=== PATIENT | female | born 1960 | race Caucasian/White ===

== ENCOUNTER 2016-06-07 18:05 | Emergency (ER) | payer MEDICARE, OTHER ==
--- NOTE | ~2016-06-07 | CR63 ---
[facility] A Service of [facility] RADIOLOGY TEXT RESULTS PATIENT: KIRK MCKENZIE LOCATION: SED : 60 UNIT #: [id number] AGE: [address]: Conner Rosado MD SEX: F ORDER DR: [id number] [place] [id number] E MR#: [id number] Acc #: [id number] NAME: KIRK MCKENZIE : 1960 SEX: F STUDY DATE/TIME: 06/07/2016 18:34 UNIT: SED ROOM: STUDY DESCRIPTION: CR Chest 2 View Attending Physician: Conner Rosado M.D. Ordering Physician: Conner Rosado M.D. Primary Care Physician: Arminda Bravo A.P.R.N. MEDICAL IMAGING REPORT This report is preliminary unless electronic signature is present. EXAM Chest x-ray HISTORY Cough, short of air and congestion since Wednesday. History of asthma and COPD. Smoker. COMMENT 2 views of the chest reviewed. Comparison 10/02/2015. There is hyperinflation and some distortion of parenchymal architecture consistent with chronic obstructive lung disease history but no pleural effusion. Ardg-[id number]-[id number] thoracic degenerative changes again seen. Heart size is normal. Probably some thickening of central peribronchovascular soft tissues consistent with asthma/bronchitis, but this has not changed. No focal alveolar infiltrate, no pneumothorax, no congestive failure. IMPRESSION 1. Hyperinflation and distortion of parenchymal architecture consistent with chronic obstructive lung disease history, probably some thickening of the peribronchovascular soft tissues - all chronic in appearance. No focal alveolar infiltrate, no pleural effusion or pneumothorax. Dictated by... Luisa Hoffman M.D. THIS IS AN ELECTRONICALLY VERIFIED REPORT Luisa Hoffman M.D. at 06/07/2016 11:14 PM [facility]/psc [facility] A Service of [facility] RADIOLOGY TEXT RESULTS PATIENT: KIRK MCKENZIE LOCATION: SED : 60 UNIT #: [id number] AGE: [address]: Conner Rosado MD SEX: F ORDER DR: TD: 06/07/2016 22:58 JOB #: [id number] MEDICAL IMAGING REPORT Page 1 of 1
--- NOTE | ~2016-06-07 | EKG ---
PATIENT: KIRK MCKENZIE UNIT #: [id number] Ventricular Rate: 87 BPM Atrial Rate: 87 BPM P-R Interval: 132 ms QRS Duration: 94 ms Q-T Interval: 360 ms QTC Calculation(Bezet): 433 ms P [place]: 45 degrees Calculated R [place]: 43 degrees Calculated T [place]: 140 degrees Diagnosis Line: Normal sinus rhythm Diagnosis Line: Possible Left atrial enlargement Diagnosis Line: Left ventricular hypertrophy with repolarization Diagnosis Line: abnormality Diagnosis Line: Abnormal ECG Diagnosis Line: When compared with ECG of 17-AUG-2014 05:47, Diagnosis Line: T wave inversion more evident in Lateral leads Diagnosis Line: Confirmed by KATT WILKES MD ([id number]) on Diagnosis Line: 06/25/2016 7:10:58 AM INTERPRETING : MEAGAN
[~2016-06-07 18:05] MED LIST: ACULAR10 ML OD; ALBUTEROL17 GM; ALBUTEROL17 GM INH; ALLERGY RELIEF10 M1 PO; AMOXICILLIN500 M1 PO; ANAPROX DS550 M1 PO; ASPIRIN; ASPIRIN81 MG PO; ATROVENT; BENZONATATE PO; BUSPAR; BUSPAR PO; CARDIZEM SR PO; CELEXA; CELEXA PO; CLARITIN10 MG PO; COLACE PO; DEPAKOTE; DEPAKOTE PO; DILTZAC; DOCUSATE; FLONASE16 GM; HYCODAN60 ML 5MG/ PO; K-DUR20 ME1; K-DUR20 ME2 PO; KCL PO; LASIX; LASIX PO; LEVOTHYROXINE; LIPITOR; LIPITOR PO; LISINOPRIL; LISINOPRIL PO; LISINOPRIL10 MG PO; LOPRESSOR; LOPRESSOR PO; LORTAB 5/500 TA1 TA1 PO; METOPROLOL TAR25 MG PO; MIRALAX; NEOSPORIN OINTM15 GM TOP; NITROGLYGERIN0.4 MG SL; NORCO 5MG/325MG PO; OMEPRAZOLE; OMEPRAZOLE20 M1 PO; POLYTRIM EYE DR10 ML OD; POTASSIUM; PREDNISONE PO; PREMARIN; PREMARIN PO; PRILOSEC; PRILOSEC PO; ROBAXIN500 MG PO; RONDEC-DM ORAL30 ML PO; SENNA S TABLET1 TAB PO; SEROQUEL PO; SYNTHROID; SYNTHROID PO; SYNTHROID25 MCG PO; Seroquel; TESSALON200 MG PO; ZITHROMAX PO; ZOCOR; ZOCOR PO; ZYRTEC; ZYRTEC10 M3 PO
[2016-06-07 18:45] LABS: BASOPHIL# 0.1 X10e3 (0-0.3); BASOPHIL% 0.9 % (0-2.5); EOSINOPHIL# 0.2 X10e3 (0-0.7); EOSINOPHIL% 1.5 % (0.0-7.0); HEMATOCRIT 37.1 % (35.0-45.0); HEMOGLOBIN 12.1 gm/dL (12.0-16.0); LYMPHOCYTE# 2.7 X10e3 (1.0-3.5); LYMPHOCYTE% 25.7 % (17.0-45.0); MEAN CELL VOLUME 90.9 FL (83-96); MEAN CORPUSCULAR HEMOGLOBIN 29.7 PG (28-34); MEAN CORPUSCULAR HGB CONC 32.7 g/dL (30-36); MEAN PLATELET VOLUME 8.7 FL (6.5-11.5); MONOCYTE# 0.6 X10e3 (0-1.0); MONOCYTE% 5.8 % (3.0-12.0); NEUTROPHIL% 66.1 % (40-75); PLATELET COUNT 178 X10e3 (140-420); RED BLOOD COUNT 4.08 X10e (3.90-5.30); RED CELL DISTRIBUTION WIDTH 14.5 % (11.0-15.5); WHITE BLOOD COUNT 10.6 X10e3 (4.0-10.5)
[2016-06-07 18:46] LABS: DIFF IND NO
[2016-06-07 18:53] LABS: POC - CKMB 5.7 ng/mL (0.0-7.9); POC - MYOGLOBIN 84.8 ng/mL (0.0-169.0); POC - TROPONIN <0.05 ng/mL (<=0.05)
[2016-06-07 18:58] LABS: ALBUMIN SERUM 3.6 g/dL (3.5-5.0); BILIRUBIN, DIRECT 0.1 mg/dL (0.0-0.2); BILIRUBIN,INDIRECT 0.3 mg/dL (0.0-0.9); BILIRUBIN,TOTAL 0.4 mg/dL (0.2-2.0); CREATININE SERUM 0.6 mg/dL (0.6-1.4); GLOM FILT RATE Estimated 102.6 mL/min (>60); MAGNESIUM 1.9 mg/dL (1.6-3.0); POTASSIUM 3.2 mmol/L (3.5-5.1); PROTEIN TOTAL SERUM 7.1 g/dL (6.0-8.3)
== END 2016-06-07 19:52 | disposition home or self-care (01) ==
LOC: SED 18:05
PROVIDERS: Emergency Medicine
DX: J44.1 Chronic obstructive pulmonary disease with (acute) exacerbation (principal); E87.6 Hypokalemia; I10 Essential (primary) hypertension; K21.9 Gastro-esophageal reflux disease without esophagitis; E03.9 Hypothyroidism, unspecified; F17.210 Nicotine dependence, cigarettes, uncomplicated; Z88.0 Allergy status to penicillin; Z88.5 Allergy status to narcotic agent; Z88.1 Allergy status to other antibiotic agents; Z79.899 Other long term (current) drug therapy
CPT/HCPCS: 36415; 71020; 80048; 80076; 82553; 83735; 83874; 83880; 84484; 85025; 93005; 94640; 96374; 99283; J2930

== ENCOUNTER 2016-11-16 20:06 | Emergency (ER) | payer MEDICARE, OTHER ==
[~2016-11-16] VITALS: Ht 165.1 cm; Wt 97.5 kg
[2016-11-16] MEDS ORDERED: FLONASE 0.05% N16 G1 (20:29)
== END 2016-11-16 21:51 | disposition home or self-care (01) ==
LOC: SED 20:06
DX: M54.41 Lumbago with sciatica, right side (principal); F17.210 Nicotine dependence, cigarettes, uncomplicated; Z90.49 Acquired absence of other specified parts of digestive tract; Z90.710 Acquired absence of both cervix and uterus; Z88.5 Allergy status to narcotic agent; Z88.8 Allergy status to other drugs, medicaments and biological substances; Z79.899 Other long term (current) drug therapy
CPT/HCPCS: 99283